=== PATIENT | male | born 1940 | race Caucasian/White ===

== ENCOUNTER 2020-11-06 08:59 | Outpatient (REF) | payer MEDICARE, SELFPAY ==
[2020-11-07 09:47] LABS: Urine Cytology See Pathology rpt
== END 2020-11-06 09:00 | disposition home or self-care (01) ==
LOC: CF 08:59
PROVIDERS: Visit Provider Urology
DX: N40.1 Benign prostatic hyperplasia with lower urinary tract symptoms (principal); R39.12 Poor urinary stream; F17.200 Nicotine dependence, unspecified, uncomplicated; D49.4 Neoplasm of unspecified behavior of bladder; Z77.098 Contact with and (suspected) exposure to other hazardous, chiefly nonmedicinal, chemicals
CPT/HCPCS: 52000; 81002; 88112; 99212

== ENCOUNTER 2021-05-08 08:55 | Outpatient (REF) | payer MEDICARE, SELFPAY ==
[2021-05-08 16:56] LABS: Urine Cytology See Pathology rpt
== END 2021-05-08 08:56 | disposition home or self-care (01) ==
LOC: HO.LAB 08:55
PROVIDERS: Visit Provider Urology
DX: D49.4 Neoplasm of unspecified behavior of bladder (principal); N40.1 Benign prostatic hyperplasia with lower urinary tract symptoms; F17.200 Nicotine dependence, unspecified, uncomplicated
CPT/HCPCS: 52000; 88112; 99212

== ENCOUNTER 2021-12-11 12:53 | Outpatient (REF) | payer MEDICARE, SELFPAY ==
[2021-12-11 16:42] LABS: Urine Cytology See Pathology rpt
== END 2021-12-11 12:54 | disposition home or self-care (01) ==
LOC: HO.LAB 12:53
PROVIDERS: Visit Provider Urology
DX: D49.4 Neoplasm of unspecified behavior of bladder (principal); N40.1 Benign prostatic hyperplasia with lower urinary tract symptoms
CPT/HCPCS: 52000; 88112; 99212

== ENCOUNTER → 2022-07-02 10:54 | Outpatient (BNVA) | payer MEDICARE, SELFPAY | PROVIDERS: PCP Internal Medicine; Visit Provider Urology | DX: N40.1 Benign prostatic hyperplasia with lower urinary tract symptoms (principal); N13.8 Other obstructive and reflux uropathy; C67.3 Malignant neoplasm of anterior wall of bladder; D49.4 Neoplasm of unspecified behavior of bladder | CPT/HCPCS: 52000; 99212 ==

== ENCOUNTER → 2023-02-23 14:55 | Outpatient (BNVA) | payer MEDICARE, SELFPAY | PROVIDERS: PCP Internal Medicine; Visit Provider Orthopaedic Surgery | DX: M25.561 Pain in right knee (principal) | CPT/HCPCS: 99212 ==

== ENCOUNTER 2023-07-01 10:48 | Outpatient (AMB) | payer MEDICARE, SELFPAY ==
--- NOTE | 2023-07-01 10:55 | MHC.OFFVIS ---
Intake Intake Visit Reasons: Cysto Intake Note: Patient is Present for Cystoscopy Urology Med: Finasteride, Antibiotic Allergy: None Blood Thinner: None Pharmacy: [facility]- G Disposable Cystoscope lot: [id number] exp:01/09/2025 Allergies hydrochlorothiazide [Dyazide] Allergy (Unknown, Verified 07/01/23 10:59) Unknown triamterene [Dyazide] Allergy (Unknown, Verified 07/01/23 10:59) Unknown HPI HPI Comments History of Present Illness Details Valeriy AVILES is a very pleasant male. They are a patient of Dr Romero. They are seen in the office today for the following urologic conditions. - bladder cancer - stress incontinence Bladder clear today Continue with yearly follow-up Has occasional leakage Recommend pelvic floor exercises Bladder Cancer: Initial diagnosis 2014 repeat lesion 2016 and 2017 Bladder cancer was initially diagnosed in [address] Kline, during evaluation for gross hematuria. Bladder intervention(s) performed 2014 , TURBT, with Mitomycin C, Ta noninvasive papillary carcinoma, Low Grade 2015 Dr Vieira , TURBT, with Mitomycin C, T1 invades subepthium, Low Grade, recurrent Induction, BCG Maintanence, BCG 09/14 Biopsy/fulgeration LG, Ta noninvasive papillary carcinoma 04/16 Maintanence 3 doses - gemcitabine. Recurrence Risk per EORTC Intermediate Risk. Bladder cancer risk factors Organic Solvent exposure Yes smoking Yes Prior Cystoscopy 05/15 , Negative 09/15 , Positive - left small lesion - resect, fulgerate - Low Grade, 12/14 , Negative, 03/15 small flat area on dome fulgerated 09/16 BCG changes, 03/16 BCG changes 12/16 small flat lesion on posterior wall, 04/17 NAD - 11/16 small BCG change on dome, 05/19 NAD - 06/19 NAD Prior Cytology Negative for malignancy 09/15 Cytology Negative, 09/15 FISH Negative, 03/15 mild atypia 12/15 negative high-grade malignancy, question of low-grade atypia, 03/16 NAD - 11/16 NAD Previous intravesical therapy 2015 , BCG Induction, BCG Maintanence 12/14 , BCG Maintanence 3W 04/16 , BCG Maintanence 3 weeks. Planned treatment surveillance protocol [facility] Medical History Bladder tumor Poor urinary stream Benign prostatic hyperplasia with lower urinary tract symptoms Malignant neoplasm of anterior wall of urinary bladder Surgical History History of surgery Social History Patient Tobacco Use Status: Former Tobacco user Review of Systems Const Denies chills and Denies fever(s) Card Reports no additional complaints and Denies syncope Resp Denies cough GI Denies abdominal pain and Denies heartburn Reports as per HPI and Denies change in libido Neuro Denies syncope Psych Denies change in libido Endo Denies change in libido Physical Exam Const General: cooperative, healthy appearing, comfortable and no acute distress Orientation/consciousness: patient oriented x3 HEENT Face and sinus: Yes normal facial exam Mouth: moist mucous membranes Neck Neck: Yes normal visual inspection, Yes full ROM and Yes trachea midline Chest Chest palpation & inspection: normal inspection of the chest Resp Effort & Inspection: normal respiratory effort, able to speak in complete sentences and no respiratory distress GI Inspection: Yes normal to inspection Back/Spine/Pelvis Cervical Spine: normal cervical lordosis Thoracic/Lumbar Spine: thoracic and lumbar spine normal to inspection Skin General skin exam: no rashes or lesions noted Neuro General: patient oriented x3, gait normal, tone normal and moves all extremities Extrem General: Yes normal to inspection and Yes capillary refill normal Office Procedures Cystoscopy Consent Discussed risk and benefit or proposed procedure with the patient. Information consent for procedure given to the patient. Discussed technical aspects, risks, benefits and alternatives in full. Addressed all of the patient's questions and concerns regarding the procedure. The patient demonstrated knowledge and understanding. They wish to proceed with this procedure. Preparation The patient was prepped in the usual manner. A family and consumer sciences professor was present and in the room. Genitalia was prepped with betadine solution in a sterile manner. Lidocaine Jelly 2% was placed into the urethra and 16Fr flexible Olympus cystoscope was inserted into the meatus after adequate lubrication. Procedure Meatus circumcised Urethra anterior posterior urethra normal Prostatic Urethra unremarkable Bladder examination with retroflexion of cystoscope Bladder Orifices normal shape and position Bladder Capacity medium Trabeculations grade 1/2 Cellule Formation - Diverticulum Formation - Mucosal Erythema - Bladder Tumor - 46624-[id number] DISPOSABLE SCOPE URO-G FLEXIBLE SCOPE Procedure code (CPT) selection complete Office Meds lidocaine HCl 2 % mucosal jelly in applicator Performing Provider: Kayden Lang MD Performing Location: [facility] Administered by: LELO Zhu on 07/01/23 11:07 Dose Route Admin Location Dispensed Lot Number Expiration Date NDC Driller Machine 10 mL intra-urethral 10 mL nitrofurantoin monohydrate/macrocrystals 100 mg capsule Performing Provider: Kayden Lang MD Performing Location: [facility] Administered by: LELO Zhu on 07/01/23 11:07 Dose Route Admin Location Dispensed Lot Number Expiration Date NDC Driller Machine 100 mg PO 1 cap naproxen 500 mg tablet Performing Provider: Kayden Lang MD Performing Location: [facility] Administered by: LELO Zhu on 07/01/23 11:07 Dose Route Admin Location Dispensed Lot Number Expiration Date NDC Driller Machine 500 mg PO 1 tab Results AMB Urinalysis, Automated UA Leukoctes 0 Joe/uL Last Edit by LELO Zhu on 07/01/23 11:08 UA Nitrite Negative Last Edit by Gege Vargas Richi on 07/01/23 11:08 UA Urobilinogen 0.2 mg/dL Last Edit by LELO Zhu on 07/01/23 11:08 UA Protein 300 mg/dL Last Edit by Gege Vargas [facility] on 07/01/23 11:08 UA pH 5.5 Last Edit by Gege Vargas Richi on 07/01/23 11:08 UA Blood 0 Silvio/uL Last Edit by Gege Vargas Richi on 07/01/23 11:08 UA Specific Porter 1.020 Last Edit by LELO Zhu on 07/01/23 11:08 UA Ketone Negative Last Edit by LELO Zhu on 07/01/23 11:08 UA Bilirubin 0 mg/dL Last Edit by Gege Vargas A on 07/01/23 11:08 UA Glucose 0 mg/dL Last Edit by LELO Zhu on 07/01/23 11:08 Results Reviewed Results Reviewed: Laboratory Last Values Urine pH (Auto) 5.5 07/01/23 11:03 Specific Porter (Auto) 1.020 07/01/23 11:03 Urine Protein (Auto) 300 mg/dL 07/01/23 11:03 Glucose (UA)(Auto) 0 mg/dL 07/01/23 11:03 Urine Ketones (Auto) Negative 07/01/23 11:03 Urine Blood (Auto) 0 Silvio/uL 07/01/23 11:03 Urine Nitrite (Auto) Negative 07/01/23 11:03 Urine Bilirubin (Auto) 0 mg/dL 07/01/23 11:03 Urine Urobilinogen (Auto) 0.2 mg/dL 07/01/23 11:03 Leukocyte Esterase (Auto) 0 Joe/uL 07/01/23 11:03 Assessment & Plan Assessment & Plan (1) Bladder tumor: Code(s): D49.4 - Neoplasm of unspecified behavior of bladder Plan Information on male pelvic floor exercises provided Orders: Orders AMB Cystoscopy Today D49.4 - Neoplasm of unspecified behavior of bladder AMB Urinalysis Automated Today D49.4 - Neoplasm of unspecified behavior of bladder, Z13.9 - Encounter for screening, unspecified FISH Bladder Cancer Today D49.4 - Neoplasm of unspecified behavior of bladder Patient Instructions: Imaging studies, laboratory and physical exam results were discussed and reviewed in detail. No major barriers to patient understanding were identified. An opportunity to ask questions regarding the treatment plan was provided. All questions were answered. The patient expressed understanding and agreement with the above treatment plan. The patient is aware they should contact our office by phone for worsening of their current condition or the appearance of new urologic symptoms. Compliance is encouraged with any medications and followup testing that is ordered. It is a privilege to participate in the urologic care of your patient. If you have any questions or concerns regarding treatment for the above conditions, or other urologic issues, please do not hesitate to contact me. The office telephone contact is [phone]. This note is constructed using voice recognition software. While every effort has been made to ensure accuracy project manager finance errors may have been included. Yours sincerely, Dr Kayden Lang MD, ANDRE[facility] - Urology Providers of Expert, Compassionate Care for the Genitourinary System Coding Level of Care Code Est Pt Level 4 (44177) Diagnoses Bladder tumor D49.4 CPT Codes Cystoscopy - CPT: 12857-[id number] ([id number])
== END 2023-07-01 11:42 | disposition home or self-care (01) ==
PROVIDERS: Visit Provider Urology
DX: D49.4 Neoplasm of unspecified behavior of bladder (principal)
CPT/HCPCS: 52000

== ENCOUNTER 2023-07-01 10:48 | Outpatient (REF) | payer MEDICARE, SELFPAY | END 2023-07-01 10:49 | disposition home or self-care (01) | LOC: HO.LAB 10:48 | PROVIDERS: Visit Provider Urology | DX: D49.4 Neoplasm of unspecified behavior of bladder (principal); N39.3 Stress incontinence (female) (male) | CPT/HCPCS: 52000; 81003; 88121 ==

== ENCOUNTER 2023-09-07 09:48 | Outpatient (REF) | payer MEDICARE, SELFPAY ==
--- NOTE | ~2023-09-07 | XR_ITS ---
EXAMINATION: XR HAND, LEFT Wrist left CLINICAL INFORMATION: Pain COMPARISON: None available. TECHNIQUE: PA, lateral, and oblique views of the left hand. FINDINGS: LEFT HAND AND WRIST: There is mild subluxation in the distal interphalangeal joint of third finger and mild narrowing cough proximal interphalangeal joints of first-fifth fingers. There is subluxation and narrowing of the third and second metacarpophalangeal joints and narrowing of the first carpometacarpal joint. There are changes of osteoarthritis with narrowing of the first carpometacarpal joint and cystic changes in the styloid of the radius. There is no evidence of fractures. Soft tissues unremarkable. XR/XR hand wrist LT IMPRESSION: Changes of degenerative osteoarthritis and disc
--- NOTE | ~2023-09-07 | XR_ITS ---
EXAMINATION: XR HAND, RIGHT CLINICAL INFORMATION: Pain in the right hand COMPARISON: None available. TECHNIQUE: PA, lateral, and oblique views of the right wrist and PA, lateral, and oblique views of the right hand FINDINGS: RIGHT HAND: There are changes of degenerative osteoarthritis seen with significant narrowing and subchondral cysts formation in first, second, third metacarpophalangeal joints and significant changes of osteoarthritis at the first carpometacarpal and metacarpophalangeal joint with narrowing of scaphoid trapezius joint. There is mild narrowing and subluxation in the distal interphalangeal joints of second-fourth fingers. There is cystic lesion in the distal metadiaphysis of right ulna. Soft tissues are unremarkable. XR/XR hand wrist RT IMPRESSION: Changes of degenerative osteoarthritis as reported.
== END 2023-09-07 09:49 | disposition home or self-care (01) ==
LOC: HO.HOSX 09:48
PROVIDERS: PCP Internal Medicine; Visit Provider Physical Medicine & Rehabilitation
DX: M19.041 Primary osteoarthritis, right hand (principal); M19.042 Primary osteoarthritis, left hand; Z79.899 Other long term (current) drug therapy
CPT/HCPCS: 73110; 73130; 99202

== ENCOUNTER 2023-09-07 09:52 | Outpatient (AMB) | payer MEDICARE, SELFPAY ==
--- NOTE | 2023-09-07 09:50 | MHC.OFFVIS ---
Intake Intake Visit Reasons: Newprob- B/L Hand pain Intake Note: Valeriy is an 82 year old right hand dominant male who presents today for a new problem visit with complaints of bilateral hand pain. He fell out of a truck about 30 years ago and he fractured his right wrist, requiring ORIF. He continues to have pain of the wrist and hand. The left thumb has history of locking and catching as well as pain, he has history of surgery but is unsure what the surgery was called but it was due to OA of the joint. He is hoping to have an injection in the right hand Allergies hydrochlorothiazide [Dyazide] Allergy (Unknown, Verified 09/07/23 09:50) Unknown triamterene [Dyazide] Allergy (Unknown, Verified 09/07/23 09:50) Unknown Medication List - Last Reconciled 09/07/23 by Kylie Rojo MD acyclovir mg PO amitriptyline mg PO amlodipine 10 mg PO DAILY amoxicillin 500 mg PO BID celecoxib mg PO BID doxycycline hyclate 100 mg PO BID finasteride 5 mg PO DAILY 90 days gabapentin 300 mg PO TID gabapentin 400 mg PO BID irbesartan 150 mg PO DAILY metoprolol tartrate 50 mg PO DAILY montelukast 10 mg PO DAILY omeprazole 20 mg PO BID sodium polystyrene sulfonate grams PO HPI HPI Comments History of Present Illness Details Right ORIF for fracture 30 years, from on outstretched hand, looks like 2nd metacarpal? But over the years, pain on base of right thumb. No numbness. 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 Feels weak though. Bony enlargement on IP joints and flexed on DIP. Left hand started bothering him 5 years ago. 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 Still has pain on that area (not as bad as right). No numbness. Good guest experience representative. Here with Mad[facility]. History of right TKA twice, Dr. Sims, 2019. History of bladder CA, follows urology. Remission for 3 years. On gabapentin for neuropathy, numbness on feet and hands, etiology unclear. [facility] Medical History (Updated 09/07/23 @ 11:56 by Kylie Rojo MD) Osteoarthritis of hands, bilateral Bladder tumor Poor urinary stream Benign prostatic hyperplasia with lower urinary tract symptoms Malignant neoplasm of anterior wall of urinary bladder Surgical History History of surgery Social History Patient Tobacco Use Status: Former Tobacco user Review of Systems Const All systems reviewed & are unremarkable except as noted in HPI and below Physical Exam Constitutional: Patient appears to be in no acute distress, well nourished and well developed. MSK: Inspection reveals appropriate head and neck positioning. No joint effusion noted. No deformity noted. No intrinsic hand weakness noted. No atrophy noted. Carson test negative. Carpal compression test negative. Tinel sign negative. Bony enlargement on bilat 1st-3rd MCP, right worse than left. Heberden node on right second DIP/index. Strength is 5/5 in all muscle groups tested. No increased tone noted. Neurological: Neurologic examination of the upper and lower extremities was nonfocal with intact sensation, muscle stretch reflexes and without focal motor deficits . Lantigua?s negative bilaterally. Gait is non-antalgic without loss of balance. Results Reviewed Results Reviewed: I independently reviewed the results of the following: Hand x-rays done and office today-degenerative changes on right 1st MCP, 2nd MCP, 3rd MCP joints; left MCP, 2nd and 3rd MCP joints. I reviewed records from the following: Urology Assessment & Plan Assessment & Plan (1) Osteoarthritis of hands, bilateral: Code(s): M19.041 - Primary osteoarthritis, right hand; M19.042 - Primary osteoarthritis, left hand Qualifiers: Osteoarthritis type: primary Qualified Code(s): M19.041 - Primary osteoarthritis, right hand; M19.042 - Primary osteoarthritis, left hand Plan Hand pain, mostly on 1st MCP joints, right worse than left; and bilateral 2nd and 3rd MCP joints. Osteoarthritis. Discussed x-ray results, looked at images together. We would have him start exercises to strengthen flexion and guest experience representative, avoid contractures. Then we will refer him to Dr. Soliz for consideration of injection and discussion of possible surgery. Assessment and plan discussed with patient, and patient was agreeable. All questions were answered thoroughly. Total of 45 minute spent today including chart review, results review, history taking, physical examination, discussion of assessment and plan, and coordination of care. Kylie Rojo MD, ANDREA Board Certified, [place] [employer] and [employer] (ABPMR) Board Certified, [place] [employer] Electrodiagnostic Medicine (ABEM) Orders: Orders XR hand wrist RT Today M79.643 - Pain in unspecified hand XR hand wrist LT Today M79.643 - Pain in unspecified hand Coding Level of Care Code New Pt Level 4 (20202) Diagnoses Primary osteoarthritis of both hands M19.041; M19.042 Osteoarthritis type: primary
== END 2023-09-07 11:22 | disposition home or self-care (01) ==
PROVIDERS: PCP Internal Medicine; Visit Provider Physical Medicine & Rehabilitation
DX: M19.041 Primary osteoarthritis, right hand (principal); M19.042 Primary osteoarthritis, left hand
CPT/HCPCS: 99204

== ENCOUNTER 2023-09-28 14:17 | Outpatient (AMB) | payer MEDICARE, SELFPAY ==
--- NOTE | 2023-09-28 14:29 | A.OFFVIS_ITS ---
Intake Vital Signs 09/28/23 14:30 Height 5 ft 7 in Weight 70 lb BMI 11.0 Intake Visit Reasons: OV- B/L MCP OA Intake Note: Valeriy 82 yr old male presents today for a follow up visit for bilateral hand O.A pain mostly on 1st MCP joints, right worse than left; and bilateral 2nd and 3rd MCP joints. Last seen with Dr. Car who recommended patient to start exercises to strengthen flexion and tram inspector, avoid contractures. Also referred to Dr. Soliz for consideration of injection and discussion of possible surgery. Also mentioned he has numbness and tingling due to neuropathy. Allergies hydrochlorothiazide [Dyazide] Allergy (Unknown, Verified 09/28/23 14:30) Unknown triamterene [Dyazide] Allergy (Unknown, Verified 09/28/23 14:30) Unknown HPI OV- B/L MCP OA HPI Details Valeriy is an 82 year old right hand dominant man who presents with complaints of bilateral hand pain. His chief complaint today is of pain in the basal joint of the right thumb. He complains of pain with daily activity, worse with pinching or gripping activities. His primary complaint is of right thumb pain, though he has pain in all his fingers with activities such as driving. He denies any prior treatment for his OA. He was seen by Dr. Car and referred here to discuss treatment. She did give him some ROM exercises he should perform at home. he says he had a left basal joint arthroplasty done when he was ~77 years old. He says this did not help his pain, and he would like to avoid surgery in his right hand. He says he enjoys shooting his gun at targets, but shooting guns cause him an increase in hand pain. [facility] Medical History (Updated 09/28/23 @ 16:01 by Lala Soliz MD) Osteoarthritis of hands, bilateral Bladder tumor Poor urinary stream Benign prostatic hyperplasia with lower urinary tract symptoms Malignant neoplasm of anterior wall of urinary bladder Surgical History History of surgery Social History Patient Tobacco Use Status: Former Tobacco user Review of Systems Const All systems reviewed & are unremarkable except as noted in HPI and below Physical Exam Vital Signs: BMI result Body Mass Index 11.0 Const General: cooperative, healthy appearing and no acute distress Orientation/consciousness: patient oriented x3 HEENT Head: Yes normocephalic and Yes atraumatic Eyes EOM: EOMs intact bilaterally Resp Effort & Inspection: normal respiratory effort and able to speak in complete sentences Cardio Jugular venous distension: no JVD Skin General skin exam: turgor normal Rashes: no rashes Neuro General: patient oriented x3 Extrem Other: Evaluation of Bilateral Upper Extremity: The patient is alert, oriented, and in no acute distress Neuro: Median, Ulnar, Radial nerves motor and sensory grossly intact Vascular: Cap refill brisk ROM: He can make a weak fist and extend all his digits, as limited by his arthritis Skin: No lacerations or abrasions. General: No Ecchymosis. No Erythema or evidence of infection. + Shoulder sign + CMC grind Tender over the basal joint Generalized arthritic changes in multiple joints Radiographs: 3 views of the bilateral hands from 09/07/23 were reviewed by me today in clinic. They show basal joint arthritis, some thumb MCP joint arthritis, index & middle finger MCP arthritis, and generalized arthritis in multiple PIP & DIP joints. He also appears to be status post right trapeziectomy with some subsidence. Psych Appearance: grossly normal Affect: normal affect Attitude: cooperative Office Procedures Fracture Care Details: No fracture, injection Fracture Billing Code: Fracture Billing Code Assessment & Plan Assessment & Plan (1) Arthritis of carpometacarpal (CMC) joint of right thumb: Code(s): M18.11 - Unilateral primary osteoarthritis of first carpometacarpal joint, right hand (2) Osteoarthritis of hands, bilateral: Code(s): M19.041 - Primary osteoarthritis, right hand; M19.042 - Primary osteoarthritis, left hand Qualifiers: Osteoarthritis type: primary Qualified Code(s): M19.041 - Primary osteoarthritis, right hand; M19.042 - Primary osteoarthritis, left hand Plan Assessment & Plan: 1. Right basal joint osteoarthritis This is his primary complaint today 2. Left basal joint osteoarthritis 3. 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 Generalized bilateral hand arthritis, In multiple PIP & DIP joints I educated him about these conditions I discussed non-operative treatment options I recommend activity modification and steroid injections, and he is in agreement He is to limit or avoid any heavy or repetitive pinching, gripping, or twisting activities Shooting firearms is likely to exacerbate this condition. He should work on ROM exercises at home He was fitted for a right comfort cool brace to wear with daily activity Injection #1 : The risks and benefits of a steroid injection including but not limited to risk of damage to blood vessels, nerve, tendon, infection, skin bleaching, persistent or worsening pain, and failure to improve symptoms were discussed with the patient and they wish to proceed with the steroid injection. Once consent was obtained the skin over the dorsum of the right basal joint was sterilely prepped. The joint was then injected with a combination of 1 mL of (40 mg/ml} Depo-Medrol and 1% plain Lidocaine. The patient appears to have tolerated the procedure well and with no complications. He had good early relief before leaving clinic today. He knows that they may not have another steroid injection into this joint for least 4 months. Patient has a Hx of neuropathy and both bilateral hand & foot numbness. Scribed for Lala Soliz MD by Bhupinder Louis, medical secretary teacher, on 09/28/23 at 3:35 PM, EST. Coding Level of Care Code Est Pt Level 3 (63235) Diagnoses Arthritis of carpometacarpal (CMC) joint of right thumb M18.11 Primary osteoarthritis of both hands M19.041; M19.042 Osteoarthritis type: primary CPT Codes Fracture Care - Fracture Billing Code: Fracture Billing Code ([id number])
[2023-09-28 14:30] VITALS: BMI 11.0
== END 2023-09-28 15:45 | disposition home or self-care (01) ==
PROVIDERS: PCP Internal Medicine; Visit Provider Orthopaedic Surgery
DX: M18.11 Unilateral primary osteoarthritis of first carpometacarpal joint, right hand (principal); M19.041 Primary osteoarthritis, right hand; M19.042 Primary osteoarthritis, left hand
CPT/HCPCS: 20600; 99213

== ENCOUNTER → 2023-09-28 14:17 | Outpatient (BNVA) | payer MEDICARE, SELFPAY | PROVIDERS: PCP Internal Medicine; Visit Provider Orthopaedic Surgery | DX: M18.11 Unilateral primary osteoarthritis of first carpometacarpal joint, right hand (principal); M19.042 Primary osteoarthritis, left hand; M19.041 Primary osteoarthritis, right hand | CPT/HCPCS: 20600; 99212; J1020 ==

== ENCOUNTER 2024-01-25 13:17 | Outpatient (AMB) | payer MEDICARE, SELFPAY ==
[2024-01-25 14:03] VITALS: BMI 26.6
--- NOTE | 2024-01-25 14:03 | A.OFFVIS_ITS ---
Vital Signs 01/25/24 14:03 Height 5 ft 7 in Weight 170 lb BMI 26.6 Intake Visit Reasons: OV-B/L MCP OA-last 09/28/23 Intake Note: Valeriy is a 83 year old right hand dominant male who presents today for a follow up of his right MCP OA, last injection was on 09/28/23. Patient reports his last injection is giving him a couple months of relief. Patient does not want to get another injection due to it feeling better. Allergies hydrochlorothiazide [Dyazide] Allergy (Unknown, Verified 01/25/24 14:09) Unknown triamterene [Dyazide] Allergy (Unknown, Verified 01/25/24 14:09) Unknown HPI HPI OV-B/L MCP OA-last 09/28/23: Details: Valeriy is an 82 year old right hand dominant man who returns to discuss his right basal joint arthritis, S/P injection on 09/28/23. He says he is doing well and denies any pain. His injection still seems to be helping him. He says he has some stiffness in his hand at times, such as gripping a steering wheel, but says this does not hurt. He says he had a left basal joint arthroplasty done when he was ~77 years old. He says this did not help his pain, and he would like to avoid surgery in his right hand. He says he enjoys shooting his gun at targets, but shooting guns cause him an increase in hand pain. 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 Surgical History History of surgery Social History Patient Tobacco Use Status: Former Tobacco user Review of Systems Const All systems reviewed & are unremarkable except as noted in HPI and below Physical Exam Vital Signs: BMI result Body Mass Index 26.6 Const General: no acute distress and alert Orientation/consciousness: patient oriented x3 Neuro General: patient oriented x3 Extrem Other: Evaluation of Right Upper Extremity: The patient is alert, oriented, and in no acute distress Neuro: Median, Ulnar, Radial nerves motor and sensory grossly intact Vascular: Cap refill brisk ROM: He can make a weak fist and extend all his digits, as limited by his arthritis + Shoulder sign + CMC grind No tenderness over the basal joint Generalized arthritic changes in multiple joints Radiographs: 3 views of the bilateral hands from 09/07/23 were reviewed by me today in clinic. They show basal joint arthritis, some thumb MCP joint arthritis, index & middle finger MCP arthritis, and generalized arthritis in multiple PIP & DIP joints. He also appears to be status post right trapeziectomy with some subsidence. Psych Appearance: grossly normal Affect: normal affect Attitude: cooperative Assessment & Plan Assessment & Plan (1) Arthritis of carpometacarpal (CMC) joint of right thumb: Code(s): M18.11 - Unilateral primary osteoarthritis of first carpometacarpal joint, right hand Category: Medical (2) Osteoarthritis of hands, bilateral: Code(s): M19.041 - Primary osteoarthritis, right hand; M19.042 - Primary osteoarthritis, left hand Category: Medical Qualifiers: Osteoarthritis type: primary Qualified Code(s): M19.041 - Primary osteoarthritis, right hand; M19.042 - Primary osteoarthritis, left hand Plan Assessment & Plan: 1. Right basal joint osteoarthritis, S/P injection Date of Injection: 09/28/23 This is his primary complaint today I educated him about these conditions He is doing well and still has relief following his injection He should continue to limit or avoid any heavy or repetitive pinching, gripping, or twisting activities Shooting firearms is likely to exacerbate this condition. He should continue to work on ROM exercises at home He will continue to wear his comfort cool brace with daily activity 2. Left basal joint osteoarthritis, S/P arthroplasty In ~2018 at an outside clinic 3. 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 Generalized bilateral hand arthritis, In multiple PIP & DIP joints No complaints today Patient has a Hx of neuropathy and both bilateral hand & foot numbness. Scribed for Lala Soliz MD by Bhupinder Louis, medical instrument technician, on 01/25/24 at 2:15 PM, EST. Scribe Plan - Not visible on output: Scribed for Lala Soliz MD by Bhupinder Louis medical instrument technician, on [ ] at [ ], EST. Coding Level of Care Code Est Pt Level 3 (28945) Diagnoses Arthritis of carpometacarpal (CMC) joint of right thumb M18.11 Primary osteoarthritis of both hands M19.041; M19.042 Osteoarthritis type: primary
== END 2024-01-25 14:20 | disposition home or self-care (01) ==
PROVIDERS: PCP Internal Medicine; Visit Provider Orthopaedic Surgery
DX: M18.11 Unilateral primary osteoarthritis of first carpometacarpal joint, right hand (principal); M19.041 Primary osteoarthritis, right hand; M19.042 Primary osteoarthritis, left hand
CPT/HCPCS: 99213

== ENCOUNTER → 2024-01-25 13:17 | Outpatient (BNVA) | payer MEDICARE, SELFPAY | PROVIDERS: PCP Internal Medicine; Visit Provider Orthopaedic Surgery | DX: M18.11 Unilateral primary osteoarthritis of first carpometacarpal joint, right hand (principal); M19.041 Primary osteoarthritis, right hand; M19.042 Primary osteoarthritis, left hand | CPT/HCPCS: 99212 ==

== ENCOUNTER 2024-08-14 15:11 | Outpatient (AMB) | payer MEDICARE, SELFPAY ==
--- OUTSIDE RECORDS SUMMARY | 2024-08-14 15:13 | XMS_ITS ---
Author Organization [facility] [address] [place], [place] [id number] Care Team Providers Care Active Directory Specialist Name Role Phone Ross Mccoy Primary Care Provider Jayden Chavez Unavailable [phone] REASON FOR VISIT called to schedule BENEFITS TECHNICIAN appt Encounters Encounter Location Date Provider Diagnosis [facility] [address] [place], [place] [id number] 05/16/2024 Jayden Aghassi Plan Of Treatment No Information Progress Notes * Valeriy BARRYDOB:1940 (83 yo M)Acc No.[id number]:05/16/2024 Patient:?Valeriy BARRY :1940???Age:83 Y???Sex:Male Address:[address] [place] [id number] * true * Date:? Generated for Yamileth danielle/Reymundo/eTransmitting on:?08/14/2024 03:12 PM EST
--- OUTSIDE RECORDS SUMMARY | 2024-08-14 15:13 | XMS_ITS | Clinical Summary ---
Author Organization [facility] Brenda crespo Address [address] [facility] [address] [place] [address] Phone Care Team Providers Care Air Tucker Name Role Phone AutomaticallyONE, SignedONE Unavailable Conditions or Problems Problem Name Problem Code Onset Date Status Entry Date Provider Comment Standard Description Annotate BLADDER CANCER 361013884 (SNOMED CT) 05/18 Inactive 05/18 SignedONE Automatically ONE Malignant tumor of urinary bladder Problem excluded fro m report: BLADDER CANCER 432972735 (SNOMED CT) 05/18 Inactive 05/18 Giovanni Fierro MD Malignant tumor of urinary bladder ARTHRITIS 6373845 (SNOMED CT) 05/18 Active 05/18 Giovanni Fierro MD Arthritis URINARY RETENTION 864665998 (SNOMED CT) 05/18 Active 05/18 Giovanni Fierro MD Retention of urine ERECTILE DYSFUNCTION 483339509 (SNOMED CT) 05/18 Active 05/18 Giovanni Fierro MD Impotence FREQUENCY OF URINATION 164230885 (SNOMED CT) 05/18 Active 05/18 Giovanni Fierro MD Increased frequency of urination BPH (BENIGN PROSTATIC HYPERTROPHY) 044362041 (SNOMED CT) 05/18 Active 05/18 Giovanni Fierro MD Benign prostatic hyperplasia BLADDER CANCER 408560871 (SNOMED CT) 05/18 Active 05/18 Giovanni Fierro MD Malignant tumor of urinary bladder Medications Medication Instructions Start Date Stop Date Generic Name NDC Provider OXYCODONE HCL CAPS 0 OXYCODONE HCL CAPS [id number] Giovanni Fierro MD MITOMYCIN POWD 0 MITOMYCIN [id number] Giovanni Fierro MD GABAPENTIN CAPS 0 GABAPENTIN CAPS 19949638740 Giovanni Fierro MD ACETADRYL TABLET 0 DIPHENHYDRAMINE -ACETAMINOPHEN TABS 38712367876 Giovanni Fierro MD BCG VACCINE INJECTION INJECTABLE 0 BCG VACCINE 34652721721 Giovanni Fierro MD AMLODIPINE BESYLATE TABS 0 AMLODIPINE BESYLATE TABS 66401354514 Giovanni Fierro MD DUTASTERIDE-COY SULOSIN HCL CAPS 0 DUTASTERIDE-COY SULOSIN HCL CAPS 00138128235 Giovanni Fierro MD RAPAFLO CAPSULE 0 SILODOSIN CAPS 87582017639 Giovanni Fierro MD PROSCAR TABS 0 FINASTERIDE TABS 46579700689 Giovanni Fierro MD PROSCAR TABS 0 FINASTERIDE TABS 41930354612 Giovanni Fieror MD OMEPRAZOLE MAGNESIUM CPDR 0 OMEPRAZOLE MAGNESIUM CPDR [id number] Giovanni Fierro MD DUTOPROL TABLET EXTENDED RELEASE 24 HOUR 0 METOPROLOL-HYDR OCHLOROTHIAZIDE UL11M-TCU [id number] Giovanni Fierro MD KEFLEX CAPSULE 0 CEPHALEXIN CAPS 29229065364 Giovanni Fierro MD FLOMAX CAPS 0 TAMSULOSIN HCL CAPS 59672762876 Giovanni Fierro MD CIALIS TABS 0 TADALAFIL TABS 76430797494 Giovanni Fierro MD Medications Administered No information available. Allergies, Adverse Reactions, Alerts Allergy Name Reaction Description Start Date Severity Statu s Provider DYAZIDE Critical Giovanni cordero MD Results No information available. Plan of Care No information available. Procedures No information available. Vital Signs No information available. Immunizations No information available. Advance Directives No information available.
--- OUTSIDE RECORDS SUMMARY | 2024-08-14 15:13 | XMS_ITS | Data Portability ---
Author Organization [facility] Address [address] [place] [address] Assessment Encounter Date Assessment Date Assessment LastModified by Organization Details LastModified Time 12/07/2022 12/07/2022 Mr. Barry continues to do very well after undergoing right total knee replacement surgery on May 26, 2020 as well as irrigation and debridement as well as polyethylene liner exchange performed on July 04, 2020. He will continue with his home exercise program. He does know to take antibiotics before any dental work. He will contact me prior to his annual follow-up appointment should any questions or concerns arise. noemy Not available 12/07/2022 14:37:39 Plan of Treatment Reminders Order Date Submit Date Provider Last Modified By Organization Details Last Modified Time Details Appointments None record ed. Lab None record ed. Referral None record ed. Procedures None record ed. Surgeries None record ed. Imaging XR, knee, 1 or 2 view 023 12/08/19 23 [email or web address] [facility], [address], [place], [address], 3 14:30:41 Medication Orders None record ed. Patient TargetsNo targets recorded. Patient InstructionsNo instructions recorded. Reason for Referral None Reported. Procedures Surgical History Date Name Laterality Status Provider Name and Address Organization Details Recorded Time Total knee arthroplasty completed Zoie Irizarry [facility] 12/07/2022 13:33:34 Hand Surgery completed Zoie Irizarry [facility] 12/07/2022 13:33:44 Treatment of bladder lesion completed Zoie Irizarry [facility] 12/07/2022 13:33:54 Imaging Results None recorded. Procedure Notes None recorded. Medical Equipment None Reported. Allergies Allergen ID Allergen Name Allergen Category Reaction Reaction Severity Criticality Documentation Date Start Date Code Code System Note Provider Name and Address Organization Details Recorded Time 2012 Dyazide medicatio n Not available Not available Not available 12/07/2022 40375 RxNorm Zoie Irizarry null, [place] [facility] 3 13:29:21 2013 hydrochlo rothiazid e medicatio n Not available Not available Not available 12/07/2022 5487 RxNorm Zoie Irizarry null, [place] [facility] 3 13:29:31 Medications Name Sig Start Date Stop Date Status Note LastModified by Organization Details LastModified Time amoxicillin 500 mg capsule TAKE 1 CAPSULE BY MOUTH TWICE A DAY active Not Available Not Available No t Available amlodipine 10 mg tablet TAKE 1 TABLET BY MOUTH EVERY DAY active Not Available Not Available No t Available metoprolol tartrate 50 mg tablet TAKE 1 TABLET BY MOUTH THREE TIMES A DAY active Not Available Not Available No t Available gabapentin 300 mg capsule TAKE 1 CAPSULE BY MOUTH THREE TIMES A DAY active Not Available Not Available No t Available omeprazole 20 mg capsule,delay ed release TAKE 1 CAPSULE BY MOUTH ONCE DAILY BEFORE A MEAL active Not Available Not Available No t Available montelukast 10 mg tablet 1 TABLET BY MOUTH ORAL DAILY active Not Available Not Available N ot Available irbesartan 150 mg tablet TAKE 1 TABLET BY MOUTH EVERY DAY active Not Available Not Available No t Available sodium polystyrene sulfonate oral powder MIX 15 GRAMS (4 LEVEL TEASPOONFU LS) IN WATER AND DRINK ONCE A DAY DIRECTED active Not Available Not Available No t Available finasteride 5 mg tablet TAKE 1 TABLET BY MOUTH EVERY DAY active Not Available Not Available No t Available tobramycin 0.3 %-dexamethaso ne 0.1 % eye drops,suspens ion INSTILL 1 DROP IN RIGHT EYE 4 TIMES DAILY active Not Available Not Available No t Available fenofibrate 160 mg tablet TAKE 1 TABLET BY MOUTH EVERY DAY active Not Available Not Available No t Available Vitals Date Recorded Body height Body mass index (BMI) Body weight Provider Name and Address Organization Details Last Updated DateTime 12/07/2022 172.72 cm 26.6 kg/m2 33664.66 g Zoie Juan C [facility] 12/07/2022 13:29:50 Social History None recorded. Functional Status None recorded. Mental Status None recorded. Family History Relationship Description Onset Age of this Age Resolved Age Notes LastModified by Organization Details LastModified Time Father Diabetes mellitus [email or web address] Not available 2022 13:33:11 Father Family history of malignant neoplasm [email or web address] Not available 2022 13:33:20 Medical History Condition Response Gout Y Cancer Y Vascular Disease Y Hypertension Y Reflux/GERD Y Kidney Disease Y Past Encounters Encounter ID Performer Location Encounter Start Date Encounter Closed Date Diagnosis/Indication Diagnosis SNOMED-CT Code Diagnosis ICD10 Code [id number] MD RAMON [facility] [address] [facility] [address] [place] [address] 12/07/2022 13:20:56 12/07/2022 14:30:40 Pain of right knee joint [id number] 79805 M25.561 Health Concerns Section Related Observation LastModified by Organization Detai ls LastModified Time None Recorded Concern Status LastModified by Organization Details LastModified Time None Recorded Advance Directives Directive None Recorded Payers Encounter Date Sequence Insurance Name Policy Number Policy Caraballo Covered Member ID Caraballo Member ID Guarantor Name 12/07/2022 1 [facility] - MEDICARE ADVANTAGE PLAN (MEDICARE REPLACEMENT HMO) [id number] Valeriy Barry [id number] Valeriy Barry Notes Date Note Type Note Provider Name and Address Organization Details Recorded Time 12/07/2022 text/html The patient presents with complaints of mild intermittent discomfort in his left knee after undergoing left total knee replacement surgery on May 26, 2020 as well as subsequent irrigation and debridement procedure performed on July 04, 2020. He denies any fevers or chills. He continues with his home exercise program. He does not take any medicines for his discomfort. Silverio Sims MD [address] [facility] [address] [facility] [address] [address], [place], [address], [place] [facility] 12/07/2022 14:37:42
--- OUTSIDE RECORDS SUMMARY | 2024-08-14 15:13 | XMS_ITS | Patient Health Record ---
Author Organization [facility] Address [address] [place], [place] [address] Care Team Providers Care Form Carpenter Name Role Phone Ross Mccoy Primary Care Provider Quentin Sainz, Jayden Unavailable [phone] Reason For Referral No Information Encounters Encounter Location Date Provider Diagnosis [facility] [address] [place], [place] [phone] 05/16/2024 Jayden Aghassi Plan Of Treatment No Information Insurance Providers Payer Name Payer Address Payer Phone Subscriber Number Group Number Insured Name Patient Relationship to Insured Coverage Start Date Coverage End Date [facility] [address] [place] [address] [id number] Valeriy Barry Self - patient is the insured
--- NOTE | 2024-08-14 15:22 | A.OFFVIS_ITS ---
Intake Visit Reasons: 1Y Cysto(Bladder Ca) Intake Note: Patient is present for Cystoscopy Urology Medication:FINASTERIDE Antibiotic Allergy:NONE Blood Thinner:NONE TODAY'S PVR:33ML'S Lot:[id number] Exp:07/02/27 Photo Checker Required: No Allergies hydrochlorothiazide [Dyazide] Allergy (Unknown, Verified 08/14/24 15:23) Unknown triamterene [Dyazide] Allergy (Unknown, Verified 08/14/24 15:23) Unknown HPI Comments Details: Valeriy AVILES is a very pleasant male. They are a patient of Dr Romero. They are seen in the office today for the following urologic conditions. - bladder cancer - stress incontinence Continue with yearly follow-up Cystoscopy clear Has occasional leakage Recommend pelvic floor exercises Bladder Cancer: Initial diagnosis 2014 repeat lesion 2016 and 2017 Bladder cancer was initially diagnosed in [address] Kline, during evaluation for gross hematuria. Bladder intervention(s) performed 2014 , TURBT, with Mitomycin C, Ta noninvasive papillary carcinoma, Low Grade 2015 Dr Vieira , TURBT, with Mitomycin C, T1 invades subepthium, Low Grade, recurrent Induction, BCG Maintanence, BCG 09/14 Biopsy/fulgeration LG, Ta noninvasive papillary carcinoma 04/16 Maintanence 3 doses - gemcitabine. Recurrence Risk per EORTC Intermediate Risk. Bladder cancer risk factors Organic Solvent exposure Yes smoking Yes Prior Cystoscopy 05/15 , Negative 09/15 , Positive - left small lesion - resect, fulgerate - Low Grade, 12/14 , Negative, 03/15 small flat area on dome fulgerated 09/16 BCG changes, 03/16 BCG changes 12/16 small flat lesion on posterior wall, 04/17 NAD - 11/16 small BCG change on dome, 05/19 NAD - 06/19 NAD Prior Cytology Negative for malignancy 09/15 Cytology Negative, 09/15 FISH Negative, 03/15 mild atypia 12/15 negative high-grade malignancy, question of low-grade atypia, 03/16 NAD - 11/16 NAD Previous intravesical therapy 2015 , BCG Induction, BCG Maintanence 12/14 , BCG Maintanence 3W 04/16 , BCG Maintanence 3 weeks. Planned treatment surveillance protocol [facility] Medical History (Updated 09/28/23 @ 16:01 by Lala Soliz MD) Osteoarthritis of hands, bilateral Bladder tumor Poor urinary stream Benign prostatic hyperplasia with lower urinary tract symptoms Malignant neoplasm of anterior wall of urinary bladder Surgical History History of surgery Social History Patient Tobacco Use Status: Former Tobacco user Review of Systems Const Denies chills and Denies fever(s) Card Reports no additional complaints and Denies syncope Resp Denies cough GI Denies abdominal pain and Denies heartburn Reports as per HPI and Denies change in libido Neuro Denies syncope Psych Denies change in libido Endo Denies change in libido Physical Exam Const General: cooperative, healthy appearing, comfortable and no acute distress Orientation/consciousness: patient oriented x3 HEENT Face and sinus: Yes normal facial exam Mouth: moist mucous membranes Neck Neck: Yes normal visual inspection, Yes full ROM and Yes trachea midline Chest Chest palpation & inspection: normal inspection of the chest Resp Effort & Inspection: normal respiratory effort, able to speak in complete sentences and no respiratory distress GI Inspection: Yes normal to inspection Back/Spine/Pelvis Cervical Spine: normal cervical lordosis Thoracic/Lumbar Spine: thoracic and lumbar spine normal to inspection Skin General skin exam: no rashes or lesions noted Neuro General: patient oriented x3, gait normal, tone normal and moves all extremities Extrem General: Yes normal to inspection and Yes capillary refill normal Office Procedures Cystoscopy Consent Discussed risk and benefit or proposed procedure with the patient. Information consent for procedure given to the patient. Discussed technical aspects, risks, benefits and alternatives in full. Addressed all of the patient's questions and concerns regarding the procedure. The patient demonstrated knowledge and understanding. They wish to proceed with this procedure. Preparation The patient was prepped in the usual manner. A tile layer supervisor was present and in the room. Genitalia was prepped with betadine solution in a sterile manner. Lidocaine Jelly 2% was placed into the urethra and 16Fr flexible Olympus cystoscope was inserted into the meatus after adequate lubrication. Procedure Cystoscopy performed using a disposable Urovue digital 16 Guyanese cystoscope. Meatus normal Urethra anterior and posterior urethra normal Prostatic Urethra unremarkable Bladder examination with retroflexion of cystoscope Bladder Orifices normal shape and position Bladder Capacity median Trabeculations grade 2 Cellule Formation --- Diverticulum Formation - Mucosal Erythema - Bladder Tumor - 17889-Dadawhjhyq DISPOSABLE SCOPE URO-G FLEXIBLE SCOPE Procedure code (CPT) selection complete Post Void Residual Post Residual Void Post Void Residual (PVR): 33 87753-Fpdx Void Residual by ultrasound Assessment & Plan Assessment & Plan (1) Bladder tumor: Code(s): D49.4 - Neoplasm of unspecified behavior of bladder Category: Medical (2) Benign prostatic hyperplasia with lower urinary tract symptoms: Code(s): N40.1 - Benign prostatic hyperplasia with lower urinary tract symptoms Category: Medical Plan G Code G2211 Has been applied in accordance with CMS guidelines ( Medicare and Medicaid programs; [place] 2023 Payment Policies ) to convey the inherent complexity in ongoing patient care within the urology clinic. This deliberate utilization aligns with the visits complexity associated with medical care services serving as a focal point for necessary healthcare, addressing the patient's singular serious or complex condition. This judicious use ensure was appropriate reimbursement, especially in the context of managing such conditions within our specialized, longitudinal urologic practice. This patient has a complex and chronic urologic condition that requires longitudinal follow-up. [facility], Medicare and Medicaid programs; [place] 2023 Payment Policies Fed. Reg 88 (51): 37409-[address]285 (Apr.042022) Twelve month follow-up cystoscopy Orders: Orders AMB Urinalysis Automated 08/14/24 Z13.9 - Encounter for screening, unspecified Patient Instructions: Imaging studies, laboratory and physical exam results were discussed and reviewed in detail. No major barriers to patient understanding were identified. An opportunity to ask questions regarding the treatment plan was provided. All questions were answered. The patient expressed understanding and agreement with the above treatment plan. The patient is aware they should contact our office by phone for worsening of their current condition or the appearance of new urologic symptoms. Compliance is encouraged with any medications and followup testing that is ordered. It is a privilege to participate in the urologic care of your patient. If you have any questions or concerns regarding treatment for the above conditions, or other urologic issues, please do not hesitate to contact me. The office telephone contact is [phone]. This note is constructed using voice recognition software. While every effort has been made to ensure accuracy space systems operations manager errors may have been included. Yours sincerely, Dr Kayden Lang MD, [facility] - Urology Providers of Expert, Compassionate Care for the Genitourinary System Coding Level of Care Code Est Pt Level 4 (37520) Diagnoses Bladder tumor D49.4 Benign prostatic hyperplasia with lower urinary tract symptoms N40.1 CPT Codes Post Residual Void - PVR CPT Code: 27953-Pohs Void Residual by ultrasound ([id number]) Cystoscopy - CPT: 39399-Donbztrqxo ([id number])
== END 2024-08-14 16:11 | disposition home or self-care (01) ==
PROVIDERS: PCP Internal Medicine; Visit Provider Urology
DX: N40.1 Benign prostatic hyperplasia with lower urinary tract symptoms (principal); D49.4 Neoplasm of unspecified behavior of bladder
CPT/HCPCS: 52000; 99214

== ENCOUNTER → 2024-08-14 15:11 | Outpatient (BNVA) | payer MEDICARE, SELFPAY | PROVIDERS: PCP Internal Medicine; Visit Provider Urology | DX: D49.4 Neoplasm of unspecified behavior of bladder (principal); N40.1 Benign prostatic hyperplasia with lower urinary tract symptoms | CPT/HCPCS: 51798; 52000; 99212 ==